=== PATIENT | female | born 1985 | race Two or more races ===

== ENCOUNTER 2020-02-11 21:54 | Inpatient (IN) | payer MEDICAID, OTHER ==
[~2020-02-11] VITALS: Ht 154.9 cm; Wt 72.9 kg
[2020-02-12 00:38] LABS: BASOPHILS % (AUTO) 0.5 % (0.0-2.0); EOSINOPHILS % (AUTO) 1.6 % (1.0-6.0); HEMATOCRIT 26.4 % (36-46); HEMOGLOBIN 7.8 g/dL (12.0-16.0); LYMPHOCYTES # (AUTO) 1.7 K/uL (1.0-4.8); LYMPHOCYTES % (AUTO) 19.9 % (22.0-44.0); MEAN CORPUSCULAR HEMOGLOBIN 19.4 pg (26.0-34.0); MEAN CORPUSCULAR HGB CONC 29.6 G/dL (31.0-37.0); MEAN CORPUSCULAR VOLUME 66 fL (80-100); MONOCYTES # (AUTO) 0.5 K/uL (0.1-1.0); MONOCYTES % (AUTO) 5.9 % (2.0-9.0); NEUTROPHILS # (AUTO) 6.3 K/uL (1.8-7.7); NEUTROPHILS % (AUTO) 72.1 % (40.0-70.0); PLATELET COUNT (AUTO) 299 K/uL (150-450); RED BLOOD CELL COUNT(AUTO) 4.03 MIL/uL (4.00-5.20); RED CELL DISTRIBUTION WIDTH 19.9 % (11.5-14.5)
[2020-02-12 00:56] LABS: ANION GAP 6 mmol/L (8-16); CALCIUM, TOTAL 9.1 mg/dL (8.8-10.5); CARBON DIOXIDE 28 mmol/L (22-29); CHLORIDE 107 mmol/L (98-107); CREATININE 0.86 mg/dL (0.60-1.30); GLOMERULAR FILTR. RATE CALC > 60 mL/min (>60); GLUCOSE,RANDOM 126 mg/dL (70-110); POTASSIUM 3.5 mmol/L (3.5-5.1); SODIUM SERUM 141 mmol/L (136-145); UREA NITROGEN, BLOOD 7 mg/dL (7-18)
[2020-02-12 01:09] LABS: ALANINE AMINOTRANSFERASE 32 U/L (12-78); ALBUMIN 3.4 g/dL (3.4-5.0); ALKALINE PHOSPHATASE 55 U/L (46-116); ASPARTATE AMINOTRANSFERASE 48 U/L (15-37); BILIRUBIN,TOTAL 0.4 mg/dL (0.1-1.0); TOTAL PROTEIN, SERUM 6.8 g/dL (6.4-8.2)
[2020-02-12] MEDS ORDERED: LORazepam 2 MG TABLET PO PRN (01:15)
[2020-02-12] MEDS ORDERED: ACETAMINOPHEN 325 MG TABLET PO PRN (01:15)
[2020-02-12 01:33] LABS: COVID AG,FIA SOURCE NASOPHARYNGEAL
[2020-02-12 01:56] LABS: % IRON SATURATION 3.7 % (22-44)
[2020-02-12 02:55] VITALS: BP 125/83
[2020-02-12 04:12] VITALS: BP 125/83
[2020-02-12] MEDS ORDERED: INFLUENZA VIRUS VACCINE QVS 2020-21 (6MO+)/PF 60 MCG/0.5 ML SYRINGE IM ONE (04:15)
[2020-02-12 08:11] VITALS: BP 105/67
[2020-02-12] MEDS ORDERED: CYANOCOBALAMIN 1,000 MCG/ML VIAL IM ONE (11:30)
[2020-02-12] MEDS ORDERED: HydrOXYzine PAMOATE 50 MG CAPSULE PO PRN (11:30)
[2020-02-12] MEDS ORDERED: PROMETHAZINE HCL 25 MG TABLET PO PRN (11:30)
[2020-02-12] MEDS ORDERED: CloNIDine HCL 0.1 MG TABLET PO PRN (11:30)
[2020-02-12] MEDS ORDERED: MAG HYDROX/AL HYDROX/SIMETH ES 30 ML SUSPENSION UDCUP PO PRN (11:30)
[2020-02-12] MEDS ORDERED: DICYCLOMINE HCL 10 MG CAPSULE PO PRN (11:30)
[2020-02-12] MEDS ORDERED: IBUPROFEN 600 MG TABLET PO PRN (11:30)
[2020-02-12] MEDS ORDERED: LOPERAMIDE HCL 2 MG CAPSULE PO PRN (11:30)
[2020-02-12] MEDS: MULTIVITAMINS WITH MINERALS, THERAPEUTIC TABLET PO SCH (12:41)
[2020-02-12] MEDS: THIAMINE 100 MG TABLET PO SCH ×2 (12:41→20:21)
[2020-02-12] MEDS: FOLIC ACID 1 MG TABLET PO SCH (12:42)
[2020-02-12 20:11] VITALS: BP 122/77
[2020-02-13 02:39] VITALS: BP 122/77
[2020-02-13 05:56] VITALS: BP 118/80
[2020-02-13] MEDS ORDERED: LORazepam 2 MG TABLET PO PRN (07:00)
[2020-02-13] MEDS: MULTIVITAMINS WITH MINERALS, THERAPEUTIC TABLET PO SCH ×2 (08:31→08:44)
[2020-02-13] MEDS: THIAMINE 100 MG TABLET PO SCH ×3 (08:31→20:24)
[2020-02-13] MEDS: FOLIC ACID 1 MG TABLET PO SCH ×2 (08:31→08:44)
[2020-02-13] MEDS: LORazepam 2 MG TABLET PO SCH ×5 (08:31→20:24)
[2020-02-13] MEDS ORDERED: HALOPERIDOL LACTATE 5 MG/ML VIAL ONE (08:48)
[2020-02-13] MEDS ORDERED: DiphenhydrAMINE HCL 50 MG/ML VIAL ONE (08:49)
[2020-02-13] MEDS ORDERED: LORazepam 2 MG/ML VIAL ONE (08:49)
[2020-02-13] MEDS ORDERED: HALOPERIDOL LACTATE 5 MG/ML VIAL IM ONE (09:00)
[2020-02-13] MEDS ORDERED: LORazepam 2 MG/ML VIAL IM ONE (09:00)
[2020-02-13] MEDS ORDERED: DiphenhydrAMINE HCL 50 MG/ML VIAL IM ONE (09:00)
[2020-02-13 09:02] VITALS: BP 121/70
[2020-02-13 20:25] VITALS: BP 109/62
[2020-02-14 00:05] VITALS: BP 114/72
[2020-02-14 07:57] VITALS: BP 111/66
[2020-02-14] MEDS: THIAMINE 100 MG TABLET PO SCH ×2 (08:13→21:47)
[2020-02-14] MEDS: MULTIVITAMINS WITH MINERALS, THERAPEUTIC TABLET PO SCH (08:13)
[2020-02-14] MEDS: FOLIC ACID 1 MG TABLET PO SCH (08:13)
[2020-02-14] MEDS: LORazepam 2 MG TABLET PO SCH ×4 (08:13→21:47)
[2020-02-14 12:45] LABS: AMPHET/METH SCREEN,URINE NEGATIVE (NEGATIVE); BARBITURATE SCREEN, URINE NEGATIVE (NEGATIVE); BENZODIAZEPINES SCREEN,URINE NEGATIVE (NEGATIVE); CANNABINOID SCREEN,URINE NEGATIVE (NEGATIVE); COCAINE SCREEN,URINE NEGATIVE (NEGATIVE); METHADONE SCREEN, URINE NEGATIVE (NEGATIVE); OPIATE SCREEN,URINE NEGATIVE (NEGATIVE); PHENCYCLIDINE SCREEN,URINE NEGATIVE (NEGATIVE)
[2020-02-14] MEDS ORDERED: LORazepam 2 MG/ML VIAL ONE (16:19)
[2020-02-14] MEDS ORDERED: DiphenhydrAMINE HCL 50 MG/ML VIAL ONE (16:20)
[2020-02-14] MEDS ORDERED: HALOPERIDOL LACTATE 5 MG/ML VIAL ONE (16:20)
[2020-02-14] MEDS ORDERED: HALOPERIDOL LACTATE 5 MG/ML VIAL IM ONE (16:30)
[2020-02-14] MEDS ORDERED: DiphenhydrAMINE HCL 50 MG/ML VIAL IM ONE (16:30)
[2020-02-14] MEDS ORDERED: LORazepam 2 MG/ML VIAL IM ONE (16:30)
[2020-02-14 20:16] VITALS: BP 111/66
[2020-02-15 05:40] VITALS: BP 106/65
[2020-02-15] MEDS ORDERED: LORazepam 1 MG TABLET PO PRN (07:00)
[2020-02-15] MEDS: FOLIC ACID 1 MG TABLET PO SCH (09:37)
[2020-02-15] MEDS: THIAMINE 100 MG TABLET PO SCH ×2 (09:37→20:20)
[2020-02-15] MEDS: LORazepam 1 MG TABLET PO SCH ×4 (09:37→20:20)
[2020-02-15] MEDS: MULTIVITAMINS WITH MINERALS, THERAPEUTIC TABLET PO SCH (09:37)
[2020-02-15 10:01] VITALS: BP 98/59
[2020-02-15] MEDS ORDERED: LORazepam 2 MG/ML VIAL ONE (11:14)
[2020-02-15] MEDS ORDERED: DiphenhydrAMINE HCL 50 MG/ML VIAL ONE (11:15)
[2020-02-15] MEDS ORDERED: HALOPERIDOL LACTATE 5 MG/ML VIAL ONE (11:15)
[2020-02-15] MEDS ORDERED: HALOPERIDOL LACTATE 5 MG/ML VIAL IM ONE (11:30)
[2020-02-15] MEDS ORDERED: LORazepam 2 MG/ML VIAL IM ONE (11:30)
[2020-02-15] MEDS ORDERED: DiphenhydrAMINE HCL 50 MG/ML VIAL IM ONE (11:30)
[2020-02-15 15:27] VITALS: BP 105/63
[2020-02-15] MEDS: RisperiDONE 1 MG TABLET PO SCH (20:20)
[2020-02-15 20:29] VITALS: BP 109/63
[2020-02-16 03:32] VITALS: BP 107/49
[2020-02-16] MEDS ORDERED: LORazepam 1 MG TABLET PO PRN (07:00)
[2020-02-16 07:42] VITALS: BP 130/78
[2020-02-16] MEDS: FOLIC ACID 1 MG TABLET PO SCH (08:15)
[2020-02-16] MEDS: RisperiDONE 1 MG TABLET PO SCH (08:15)
[2020-02-16] MEDS: THIAMINE 100 MG TABLET PO SCH ×2 (08:16→20:16)
[2020-02-16] MEDS: MULTIVITAMINS WITH MINERALS, THERAPEUTIC TABLET PO SCH (08:16)
[2020-02-16 17:03] VITALS: BP 123/69
[2020-02-16] MEDS: RisperiDONE 2 MG TABLET PO SCH (20:16)
[2020-02-16 20:27] VITALS: BP 97/50
[2020-02-17 04:23] VITALS: BP 99/44
[2020-02-17 08:05] VITALS: BP 112/67
[2020-02-17] MEDS: FOLIC ACID 1 MG TABLET PO SCH (08:38)
[2020-02-17] MEDS: RisperiDONE 2 MG TABLET PO SCH ×2 (08:38→21:49)
[2020-02-17] MEDS: MULTIVITAMINS WITH MINERALS, THERAPEUTIC TABLET PO SCH (08:38)
[2020-02-17] MEDS: THIAMINE 100 MG TABLET PO SCH ×2 (08:38→21:50)
[2020-02-17 21:00] VITALS: BP 124/65
[2020-02-18 05:43] VITALS: BP 112/18
[2020-02-18 08:11] VITALS: BP_SYST 119; BP_SYST 19; BP_DIAS 56
[2020-02-18] MEDS: RisperiDONE 2 MG TABLET PO SCH (08:20)
[2020-02-18] MEDS: MULTIVITAMINS WITH MINERALS, THERAPEUTIC TABLET PO SCH (08:20)
[2020-02-18] MEDS: THIAMINE 100 MG TABLET PO SCH (08:20)
[2020-02-18] MEDS: FOLIC ACID 1 MG TABLET PO SCH (08:20)
[2020-02-18] MEDS ORDERED: RISP2TAB76 PO ×3 (11:57→12:02)
== END 2020-02-18 13:10 | DRG 885 ==
LOC: EMS 21:54 → 6S 02-12 00:13 → 6N 02-12 02:00
PROVIDERS: ADMIT Internal Medicine; ATTEND Internal Medicine
DX: F29 Unspecified psychosis not due to a substance or known physiological condition (principal); F19.239 Other psychoactive substance dependence with withdrawal, unspecified; F11.10 Opioid abuse, uncomplicated; D50.9 Iron deficiency anemia, unspecified; Z20.828 Contact with and (suspected) exposure to other viral communicable diseases
CPT/HCPCS: 70450; 80307; 82271; 83540; 83550; 87426; G0480; J1200; J1630; J2060; J3420

== ENCOUNTER 2021-10-29 21:40 | Inpatient (IN) | payer OTHER ==
[~2021-10-29] VITALS: Ht 160 cm; Wt 96.0 kg
[~2021-10-29 21:40] MED LIST: RISP2TAB76 PO
[2021-10-29] MEDS ORDERED: FERR325T27 PO (22:08)
[2021-10-29] MEDS ORDERED: LEVO75 PO (22:08)
[2021-10-29] MEDS ORDERED: TOPI25 PO (22:08)
[2021-10-29] MEDS ORDERED: IBUP-2070 PO (22:08)
[2021-10-29 22:23] LABS: MEAN CORPUSCULAR HGB CONC 27.4 G/dL (31.0-37.0)
[2021-10-29 22:26] LABS: BASOPHILS % (AUTO) 1.1 % (0.0-2.0); EOSINOPHILS % (AUTO) 0.6 % (1.0-6.0); HEMATOCRIT 22.6 % (36-46); LYMPHOCYTES # (AUTO) 1.4 K/uL (1.0-4.8); MEAN CORPUSCULAR HEMOGLOBIN 16.2 pg (26.0-34.0); MEAN CORPUSCULAR VOLUME 59 fL (80-100); MONOCYTES # (AUTO) 0.3 K/uL (0.1-1.0); MONOCYTES % (AUTO) 6.7 % (2.0-9.0); NEUTROPHILS % (AUTO) 62.6 % (40.0-70.0); PLATELET COUNT (AUTO) 374 K/uL (150-450); RED BLOOD CELL COUNT(AUTO) 3.82 MIL/uL (4.00-5.20); RED CELL DISTRIBUTION WIDTH 20.6 % (11.5-14.5)
[2021-10-29 22:29] LABS: HEMOGLOBIN 6.2 g/dL (12.0-16.0)
[2021-10-29 22:34] LABS: % IRON SATURATION 3.4 % (22-44); IRON, SERUM 14 mcg/dL (50-175); TOTAL IRON BINDING CAPACITY 404 mcg/dL (250-450)
[2021-10-29 22:37] LABS: PLATELET MORPHOLOGY COMMENT GIANT PLTS PRESENT; PROTHROMBIN TIME 10.9 SEC (9.4-11.6)
[2021-10-29 22:51] LABS: ANION GAP 15 mmol/L (8-16); CALCIUM, TOTAL 9.2 mg/dL (8.8-10.5); CARBON DIOXIDE 22 mmol/L (22-29); CHLORIDE 105 mmol/L (98-107); CREATININE 0.91 mg/dL (0.60-1.30); GLUCOSE,RANDOM 86 mg/dL (70-110); POTASSIUM 3.6 mmol/L (3.5-5.1); SODIUM SERUM 142 mmol/L (136-145); UREA NITROGEN, BLOOD 11 mg/dL (7-18)
[2021-10-29 22:52] LABS: GLOMERULAR FILTR. RATE CALC > 60 mL/min (>60)
[2021-10-29 22:58] LABS: ALANINE AMINOTRANSFERASE 18 U/L (12-78); ALBUMIN 4.1 g/dL (3.4-5.0); ALKALINE PHOSPHATASE 60 U/L (46-116); ASPARTATE AMINOTRANSFERASE 13 U/L (15-37); BILIRUBIN,TOTAL 0.3 mg/dL (0.1-1.0); TOTAL PROTEIN, SERUM 7.9 g/dL (6.4-8.2)
[2021-10-29] MEDS ORDERED: ACETAMINOPHEN 325 MG TABLET PO PRN ×2 (23:15→23:30)
[2021-10-29] MEDS ORDERED: 0.9% SODIUM CHLORIDE 10 ML SYRINGE IVP PRN (23:15)
[2021-10-29] MEDS ORDERED: ONDANSETRON HCL 4 MG/2 ML VIAL IVP PRN ×2 (23:15→23:30)
[2021-10-29 23:17] LABS: HCG,QUANTITATIVE < 1 mIU/mL (0-6)
[2021-10-29 23:59] LABS: COVID AG,FIA SOURCE NASAL SWAB
[2021-10-30] VITALS (13 sets, daily range): BP systolic 102–119; BP diastolic 53–85
[2021-10-30] MEDS: LEVOTHYROXINE SODIUM 75 MCG TABLET PO SCH (06:56)
[2021-10-30 07:54] LABS: BASOPHILS % (AUTO) 1.1 % (0.0-2.0); EOSINOPHILS % (AUTO) 1.2 % (1.0-6.0); HEMATOCRIT 25.3 % (36-46); HEMOGLOBIN 7.3 g/dL (12.0-16.0); LYMPHOCYTES % (AUTO) 30.8 % (22.0-44.0); MEAN CORPUSCULAR HEMOGLOBIN 17.7 pg (26.0-34.0); MEAN CORPUSCULAR HGB CONC 28.8 G/dL (31.0-37.0); MEAN CORPUSCULAR VOLUME 62 fL (80-100); MONOCYTES # (AUTO) 0.4 K/uL (0.1-1.0); MONOCYTES % (AUTO) 6.4 % (2.0-9.0); NEUTROPHILS # (AUTO) 3.9 K/uL (1.8-7.7); NEUTROPHILS % (AUTO) 60.5 % (40.0-70.0); PLATELET COUNT (AUTO) 374 K/uL (150-450); RED CELL DISTRIBUTION WIDTH 23.1 % (11.5-14.5)
[2021-10-30] MEDS ORDERED: FERROUS SULFATE 325 MG EC TABLET PO SCH (08:00)
[2021-10-30] MEDS: TOPIRAMATE 25 MG TABLET PO SCH ×2 (08:27→20:47)
[2021-10-30] MEDS ORDERED: SODIUM CHLORIDE 0.9% 500 ML IV ONE (11:23)
[2021-10-30] MEDS: SOD FERRIC GLUC COMPLX/SUCROSE 125 MG in SODIUM CHLORIDE 0.9% 100 ML IV SCH (11:44)
[2021-10-31 05:00] VITALS: BP 101/53
[2021-10-31] MEDS: LEVOTHYROXINE SODIUM 75 MCG TABLET PO SCH (06:29)
[2021-10-31 06:49] LABS: BASOPHILS % (AUTO) 1.3 % (0.0-2.0); EOSINOPHILS % (AUTO) 2.4 % (1.0-6.0); LYMPHOCYTES # (AUTO) 1.9 K/uL (1.0-4.8); LYMPHOCYTES % (AUTO) 43.6 % (22.0-44.0); MEAN CORPUSCULAR HGB CONC 29.1 G/dL (31.0-37.0); MEAN CORPUSCULAR VOLUME 62 fL (80-100); MONOCYTES # (AUTO) 0.3 K/uL (0.1-1.0); MONOCYTES % (AUTO) 7.4 % (2.0-9.0); NEUTROPHILS % (AUTO) 45.3 % (40.0-70.0); PLATELET COUNT (AUTO) 315 K/uL (150-450); RED BLOOD CELL COUNT(AUTO) 3.88 MIL/uL (4.00-5.20)
[2021-10-31 07:59] VITALS: BP 101/65
[2021-10-31] MEDS: TOPIRAMATE 25 MG TABLET PO SCH ×2 (08:39→20:02)
[2021-10-31] MEDS: DOCUSATE SODIUM 100 MG CAPSULE PO SCH ×2 (11:56→20:02)
[2021-10-31] MEDS: SOD FERRIC GLUC COMPLX/SUCROSE 125 MG in SODIUM CHLORIDE 0.9% 100 ML IV SCH (11:56)
[2021-10-31 15:55] VITALS: BP 108/71
[2021-11-01] MEDS: LEVOTHYROXINE SODIUM 75 MCG TABLET PO SCH (05:36)
[2021-11-01 05:48] VITALS: BP 99/58
[2021-11-01 06:59] LABS: BASOPHILS % (AUTO) 1.3 % (0.0-2.0); EOSINOPHILS % (AUTO) 2.3 % (1.0-6.0); HEMATOCRIT 26.6 % (36-46); HEMOGLOBIN 7.7 g/dL (12.0-16.0); LYMPHOCYTES # (AUTO) 2.3 K/uL (1.0-4.8); MEAN CORPUSCULAR HEMOGLOBIN 18.2 pg (26.0-34.0); MEAN CORPUSCULAR VOLUME 63 fL (80-100); MONOCYTES # (AUTO) 0.3 K/uL (0.1-1.0); MONOCYTES % (AUTO) 6.1 % (2.0-9.0); NEUTROPHILS # (AUTO) 2.9 K/uL (1.8-7.7); NEUTROPHILS % (AUTO) 50.3 % (40.0-70.0); PLATELET COUNT (AUTO) 335 K/uL (150-450); RED BLOOD CELL COUNT(AUTO) 4.25 MIL/uL (4.00-5.20); RED CELL DISTRIBUTION WIDTH 23.2 % (11.5-14.5)
[2021-11-01 07:10] VITALS: BP 104/61
[2021-11-01] MEDS: TOPIRAMATE 25 MG TABLET PO SCH (09:35)
[2021-11-01] MEDS: DOCUSATE SODIUM 100 MG CAPSULE PO SCH (09:35)
[2021-11-01] MEDS: SOD FERRIC GLUC COMPLX/SUCROSE 125 MG in SODIUM CHLORIDE 0.9% 100 ML IV SCH (11:28)
[2021-11-01 15:49] VITALS: BP 97/57
[2021-11-01] MEDS ORDERED: MULT-1203 PO (15:51)
[2021-11-01] MEDS ORDERED: FERROUS SULFATE 325 MG EC TABLET PO SCH (18:00)
[2021-11-02] MEDS ORDERED: MULTIVITAMINS WITH MINERALS, THERAPEUTIC TABLET PO SCH (09:00)
== END 2021-11-01 19:32 | DRG 812 ==
LOC: EMS 21:43 → 6S 10-30 01:46
PROVIDERS: ADMIT Internal Medicine; ATTEND Internal Medicine
PROC: 30233N1 Transfusion of Nonautologous Red Blood Cells into Peripheral Vein, Percutaneous Approach (ICD-10-PCS; principal; 2021-10-30)
DX: D50.9 Iron deficiency anemia, unspecified (principal); E03.9 Hypothyroidism, unspecified; F11.10 Opioid abuse, uncomplicated; Z20.822 Contact with and (suspected) exposure to COVID-19; E66.9 Obesity, unspecified; Z68.37 Body mass index [BMI] 37.0-37.9, adult; Z79.899 Other long term (current) drug therapy
CPT/HCPCS: 80053; 82271; 83540; 83550; 84443; 84702; 85025; 85610; 85730; 86850; 86900; 86901; 86920; 99285; J2916; J7040; J7050; P9016